=== PATIENT | female | born 1955 | race Caucasian/White ===

== ENCOUNTER 2017-11-29 07:22 | Day surgery (SDC) | payer BC ==
[2017-11-22 12:08] VITALS: BMI 33.0
[2017-11-29] MEDS ORDERED: PROPOFOL 20 ML ONE ×2 (07:25)
[2017-11-29] MEDS ORDERED: LIDOCAINE HCL/PF 2% SDV 5ML VIAL ONE (07:25)
[2017-11-29 09:00] VITALS: TEMP 97.9
[2017-11-29 09:30] VITALS: BP 122/74; PULSE 64
== END 2017-11-29 09:33 | disposition home or self-care (01) ==
LOC: FASU-ENDO 07:22
PROVIDERS: ATTEND Internal Medicine Gastroenterology
PROC: 0DJD8ZZ Inspection of Lower Intestinal Tract, Via Natural or Artificial Opening Endoscopic (ICD-10-PCS; principal; 2017-11-29 08:30)
DX: Z12.11 Encounter for screening for malignant neoplasm of colon (principal); Z80.0 Family history of malignant neoplasm of digestive organs; Z83.71 Family history of colonic polyps; K57.30 Diverticulosis of large intestine without perforation or abscess without bleeding
CPT/HCPCS: 82962